=== PATIENT | male | born 1975 | race Caucasian/White ===

== ENCOUNTER → 2018-04-01 | Outpatient (CLI) | payer MEDICARE ==
[~2018-04-01] VITALS: Wt 186.9 kg
== END | disposition home or self-care (01) ==
LOC: DTH 11:34
PROVIDERS: ATTEND Surgery
DX: E11.9 Type 2 diabetes mellitus without complications (principal); E66.01 Morbid (severe) obesity due to excess calories
CPT/HCPCS: 97802

== ENCOUNTER → 2018-04-20 | Outpatient (CLI) | payer OTHER | END | disposition home or self-care (01) | LOC: OIH 14:42 | PROVIDERS: ATTEND Internal Medicine Cardiovascular Disease | DX: Z13.6 Encounter for screening for cardiovascular disorders (principal) | CPT/HCPCS: 75571 ==

== ENCOUNTER 2018-08-25 12:31 | Emergency (ER) | payer MEDICARE ==
[2018-08-25] MEDS ORDERED: IPRATROPIUM/ALBUTEROL SULFATE 3 ML SOLUTION IH ONE (12:57)
== END 2018-08-25 16:00 | disposition home or self-care (01) ==
LOC: EDH 12:31
DX: R07.89 Other chest pain (principal); I10 Essential (primary) hypertension; E11.9 Type 2 diabetes mellitus without complications; J44.9 Chronic obstructive pulmonary disease, unspecified; E78.5 Hyperlipidemia, unspecified; Z87.891 Personal history of nicotine dependence
CPT/HCPCS: 36415; 71045; 83880; 84484; 93005; 94640

== ENCOUNTER 2019-01-25 07:20 | Day surgery (SDC) | payer MEDICARE ==
[~2019-01-25] VITALS: Ht 182.9 cm; Wt 181.4 kg
[~2019-01-25 07:20] MED LIST: SODIUM CHLORIDE 0.9% 1000ML 1,000 ML IV ONE
[2019-01-25 09:46] VITALS: BP 113/58
[2019-01-25] MEDS ORDERED: IPRATROPIUM/ALBUTEROL SULFATE 3 ML SOLUTION IH ONE (09:47)
[2019-01-25] MEDS ORDERED: HYDR12.530 PO (10:14)
[2019-01-25] MEDS ORDERED: ENAL10TA PO (10:14)
[2019-01-25] MEDS ORDERED: PANTOPRAZOLE (10:14)
[2019-01-25] MEDS ORDERED: ACETAMINOPHEN (10:14)
[2019-01-25] MEDS ORDERED: PREG200C PO (10:14)
[2019-01-25] MEDS ORDERED: TIOT18CA3 IH (10:14)
[2019-01-25] MEDS ORDERED: CLON1TAB23 PO (10:14)
[2019-01-25] MEDS ORDERED: APIX5TAB PO (10:14)
[2019-01-25] MEDS ORDERED: VITAMIN D3 (10:14)
[2019-01-25] MEDS ORDERED: RANEXA (10:14)
[2019-01-25] MEDS ORDERED: CAFFEINE (10:14)
[2019-01-25] MEDS ORDERED: DULOXETINE (10:14)
[2019-01-25] MEDS ORDERED: BUDE10.2 IH (10:14)
[2019-01-25] MEDS ORDERED: BUTALBITAL (10:14)
[2019-01-25] MEDS ORDERED: LEVOTHYROXINE (10:14)
[2019-01-25] MEDS ORDERED: ALBUTEROL (10:14)
[2019-01-25] MEDS ORDERED: METFORMIN (10:14)
[2019-01-25] MEDS ORDERED: PRO AIR (10:14)
[2019-01-25] MEDS ORDERED: TYLENOL #3 (10:14)
[2019-01-25] MEDS ORDERED: PROPOFOL 10 MG/ML 20ML VIAL IV ONE ×4 (10:40→10:50)
[2019-01-25 11:03] VITALS: BP 122/50
[2019-01-25 11:09] VITALS: BP 121/47
[2019-01-25 11:14] VITALS: BP 135/71
[2019-01-25 11:19] VITALS: BP 142/72
== END 2019-01-25 11:30 | disposition home or self-care (01) ==
LOC: DAH 07:20 → ENDO 07:20
PROVIDERS: ATTEND Internal Medicine
DX: R19.5 Other fecal abnormalities (principal); D12.2 Benign neoplasm of ascending colon; K62.1 Rectal polyp; K63.5 Polyp of colon; K57.30 Diverticulosis of large intestine without perforation or abscess without bleeding; K64.1 Second degree hemorrhoids; Z80.0 Family history of malignant neoplasm of digestive organs; I10 Essential (primary) hypertension; J44.9 Chronic obstructive pulmonary disease, unspecified; I25.10 Atherosclerotic heart disease of native coronary artery without angina pectoris; F41.9 Anxiety disorder, unspecified; F32.9 Major depressive disorder, single episode, unspecified; E03.9 Hypothyroidism, unspecified; E11.65 Type 2 diabetes mellitus with hyperglycemia; M19.90 Unspecified osteoarthritis, unspecified site; Z88.0 Allergy status to penicillin; Z79.899 Other long term (current) drug therapy; Z79.01 Long term (current) use of anticoagulants; Z79.84 Long term (current) use of oral hypoglycemic drugs; Z68.43 Body mass index [BMI] 50.0-59.9, adult; G47.30 Sleep apnea, unspecified; E66.01 Morbid (severe) obesity due to excess calories; K21.9 Gastro-esophageal reflux disease without esophagitis; Z86.711 Personal history of pulmonary embolism
CPT/HCPCS: 45380; 82948 ×2; 88305; 94640; A4606; J2704 ×3; J7030

== ENCOUNTER 2019-11-04 18:48 | Emergency (ER) | payer MEDICARE, OTHER ==
[~2019-11-04 18:48] MED LIST changes: +ACETAMINOPHEN; +ALBUTEROL; +APIX5TAB PO; +BUDE10.2 IH; +BUTALBITAL; +CAFFEINE; +CLON1TAB23 PO; +DULOXETINE; +ENAL10TA PO; +HYDR12.530 PO; +LEVOTHYROXINE; +METFORMIN; +PANTOPRAZOLE; +PREG200C PO; +PRO AIR; +RANEXA; -SODIUM CHLORIDE 0.9% 1000ML 1,000 ML IV ONE; +TIOT18CA3 IH; +TYLENOL #3; +VITAMIN D3
[2019-11-04] MEDS ORDERED: LIDOCAINE HCL 1% 20 ML VIAL ONE (21:56)
== END 2019-11-04 23:46 | disposition home or self-care (01) ==
LOC: EDH 18:48
DX: S91.115A Laceration without foreign body of left lesser toe(s) without damage to nail, initial encounter (principal); J44.9 Chronic obstructive pulmonary disease, unspecified; E11.9 Type 2 diabetes mellitus without complications; E78.5 Hyperlipidemia, unspecified; I10 Essential (primary) hypertension; Z88.0 Allergy status to penicillin; W22.8XXA Striking against or struck by other objects, initial encounter; Y93.01 Activity, walking, marching and hiking; Y92.89 Other specified places as the place of occurrence of the external cause; Y99.8 Other external cause status
CPT/HCPCS: 12001; 73630